=== PATIENT | male | born 1975 | race Caucasian/White ===

== ENCOUNTER 2018-02-03 10:07 | Day surgery (SDC) | payer OTHER ==
[2018-01-27 12:00] VITALS: BMI 26.4
--- NOTE | 2018-01-31 21:23 | P.GSHP ---
History of Present Illness H&P Date: 01/31/18 Chief Complaint: Bladder Foreign Bladder tthe patient is a 42-year-old male who inserted a cut silicone penile ring into his bladder in late 2015. Cystoscopy has confirmed the presence of a foreign body. He reports dysuria, urinary frequency, and suprapubic pain. - Constitutional Constitutional: Reports chronic headaches, Reports fever - Gastrointestinal Gastrointestinal: Reports abdominal pain - Genitourinary (Female) Genitourinary: Reports as per HPI Past Medical History Past Medical History: No Reported History History of Any Multi-Drug Resistant Organisms: None Reported Past Surgical History: Orthopedic Surgery Additional Past Surgical History / Comment(s): rt acl,lcl repair, lt eye surgery Past Anesthesia/Blood Transfusion Reactions: No Reported Reaction Smoking Status: Current every day smoker - Past Family History Mother Family Medical History: No Reported History Medications and Allergies Home Medications Medication Instructions Recorded Confirmed Type Azo (Maximum Strength) 1 tab PO DAILY 01/27/18 01/27/18 History Escitalopram [Lexapro] 10 mg PO DAILY 01/27/18 01/27/18 History Naproxen 500 mg PO BID 01/27/18 01/27/18 History Allergies Allergy/AdvReac Type Severity Reaction Status Date / Time No Known Allergies Allergy Verified 01/27/18 11:51 Surgical - Exam - General well developed, well nourished, no distress - Neck no masses, trachea midline - Respiratory normal respiratory effort, clear to auscultation - Cardiovascular Rhythm: regular Abnormal Heart Sounds: no systolic murmur, no diastolic murmur, no rub, no S3 Gallop, no S4 Gallop, no click, no other - Abdomen Abdomen: soft, tender (pperiumbilical tenderness), no guarding, no rigid, no rebound - Genitourinary normal penis with no external lesions, testicles non-tender - Psychiatric oriented to time, oriented to person, oriented to place, speech is normal, memory intact Assessment and Plan (1) Foreign body in bladder Status: Acute Code(s): T19.1XXA - FOREIGN BODY IN BLADDER, INITIAL ENCOUNTER SNOMED Code(s): 729964725 Plan: The patient comes for cystoscopy with endoscopic removal of foreign bladder. This may require use of the Holmium laser. If this is unsuccessful, the foreign body may need to be removed via an open cystotomy incision. All of this was discussed in detail with the patient. Potential risks include anesthesia, bleeding, infection, and bladder injury.
[~2018-02-03 10:07] MED LIST: DEXAMETHASONE SOD PHOSPHATE 10 MG/ML 1 ML VIAL IV ONE; HYDROmorphone 0.5 MG/0.5 ML SYRINGE IVP PRN; LACTATED RINGERS 1,000 ML IV SCH; ONDANSETRON 4 MG/2 ML VIAL IVP ONE; Pre Op ABX Message 1 EACH MISC MISCELLANE ONE
[2018-02-03] MEDS ORDERED: LIDOCAINE 1% 20 ML VIAL (10MG/ML) FOR IV START INTRADERMA ONE (10:31)
[2018-02-03] MEDS ORDERED: fentaNYL (PF) 50 MCG/ML 2 ML AMP ONE (13:16)
[2018-02-03] MEDS ORDERED: LIDOCAINE 1% INJ 10MG/ML (20 ML MDV) ONE (13:16)
[2018-02-03] MEDS ORDERED: PROPOFOL 10 MG/ML 20 ML VIAL IV ONE (13:16)
[2018-02-03] MEDS ORDERED: SUCCINYLCHOLINE CHLORIDE 100 MG/5 ML SYR IV ONE (13:16)
[2018-02-03] MEDS ORDERED: MIDAZOLAM 2 MG/2 ML VIAL ONE (13:16)
--- NOTE | 2018-02-03 13:46 | P.OP ---
Date of Procedure: 02/03/18 Preoperative Diagnosis: Bladder foreign body Postoperative Diagnosis: Same Procedure(s) Performed: Cystoscopy, removal of bladder foreign body Anesthesia: JANIE Surgeon: Frankie Ladd Estimated Blood Loss (ml): 0 IV fluids (ml): 300 Pathology: none sent Condition: stable Disposition: PACU Indications for Procedure: The patient is a 42-year-old male who inserted a cut silicone penile ring into his bladder in late 2015. Cystoscopy has confirmed the presence of a foreign body and he now comes for removal. Operative Findings: Silicone penile ring, removed intact. Description of Procedure: The patient was taken in the operating room and placed in the dorsolithotomy position, with his legs supported in Tristan stirrups. The external genitalia was prepped and draped sterilely. The 30 lens was used to introduce the 25- Swedish start cystoscopic sheath through the urethra and into the bladder under direct vision. The anterior urethra was unremarkable, as was the prostatic urethra. Minimal lateral lobe enlargement of the prostate was noted. The bladder was examined. There were no tumors. The bladder trigone appeared normal. The penile ring was floating, and grasping forceps were used to grasp the end of the ring, which had been cut. The ring was then pulled out along with the cystoscope. It became detached from the grasping forceps within the bulbous urethra, but the end was regrasped and removed intact. The patient tolerated the procedure well and was taken to the recovery room in stable condition.
[2018-02-03 14:03] VITALS: TEMP 98
[2018-02-03 14:35] VITALS: RESP 16
[2018-02-03 14:57] VITALS: BP 120/84; PULSE 75
== END 2018-02-03 15:02 | disposition home or self-care (01) ==
LOC: OR 10:07
PROVIDERS: ATTEND Urology
DX: T19.1XXA Foreign body in bladder, initial encounter (principal); K21.9 Gastro-esophageal reflux disease without esophagitis; F17.210 Nicotine dependence, cigarettes, uncomplicated; Z79.1 Long term (current) use of non-steroidal anti-inflammatories (NSAID); Z79.899 Other long term (current) drug therapy
CPT/HCPCS: 52310; J2250; J1100; J2405; J2001; J3010; J0330; J2704